=== PATIENT | male | born 1980 | race American Indian/Alaskan Native ===

== ENCOUNTER 2017-01-21 00:59 | Emergency (ER) | payer SELFPAY ==
[2017-01-21 01:55] LABS: Basophils % (Auto) 0.6 % (0.0-1.8); Eosinophils % (Auto) 2.7 % (0.0-4.3); Hematocrit 40.4 % (35.5-45.6); Hemoglobin 13.8 gm/dl (11.8-15.2); Mean Corpuscular HGB Conc 34 % (32-34); Mean Corpuscular Hemoglobin 29 pg (28-32); Mean Corpuscular Volume 86 fl (84-94); Platelet Count 301 K/mm3 (140-440); Red Cell Distribution Width 13.7 % (13.2-15.2); White Blood Count 10.5 K/mm3 (4.5-11.0)
[2017-01-21 02:00] LABS: Anion Gap 19 mmol/L; BUN/Creatinine Ratio 15.71; Blood Urea Nitrogen 11 mg/dL (9-20); Calcium 8.9 mg/dL (8.4-10.2); Carbon Dioxide 21 mmol/L (22-30); Chloride 104.1 mmol/L (98-107); Glucose 116 mg/dL (75-100); Sodium 140 mmol/L (137-145)
[2017-01-21 04:34] LABS: Bilirubin,Urine NEG (Negative); Blood,Urine NEG (Negative); Ketones,Urine NEG (Negative); Leukocyte Esterase,Urine NEG (Negative); Nitrite,Urine NEG (Negative); Protein,Urine <15 mg/dL mg/dL (Negative); Urobilinogen,Urine < 2.0 mg/dL (<2.0)
[2017-01-21] MEDS ORDERED: LIDOCAINE VISCOUS 2% PO ONE (08:12)
[2017-01-21] MEDS ORDERED: ALUM-MAG HYDROX-SIMETH 200-200-20MG/5ML PO ONE (08:12)
--- NOTE | 2017-01-21 08:39 | XRay Report ---
CHEST 2 VIEWS INDICATION: Shortness of breath, chest pain for 2 months. COMPARISON: None similar at this institution. FINDINGS: PA and lateral chest radiographs demonstrate normal cardiomediastinal silhouette. Clear lungs. Slight lower thoracic degenerative spurring. CONCLUSION: No acute disease in the chest. Thank you for the opportunity to participate in this patient's care.
--- NOTE | 2017-01-21 08:46 | Emergency Department Report ---
ED Chest Pain HPI - General Chief Complaint: Chest Pain Stated Complaint: SHORT OF BREATH Time Seen by Provider: 01/21/17 07:55 Source: patient Mode of arrival: Ambulatory Limitations: No Limitations - History of Present Illness Initial Comments: This is a 36-year-old -[place] male presents to the emergency department with a complaint of a 2 month history of intermittent midsternal chest discomfort. It mostly appears to occur when the patient is laying down. He denies any significant shortness of breath but does say that it is painful respirations sometimes as if he has "breathing hot fire." He had a previous episode of this in August and went to [facility] for a evaluation and was discharged home. He did not take anything for her symptoms prior presentation. He is a tobacco smoker. His primary care doctor is Dr. Smiley Albright [place]. Alb[place] is [place] [address] [place] used to live. No recent travel or sick contacts at home. He denies any past medical history himself. He is a tobacco smoker. His mother had a rather early cardiac history with a first GA in her mid to late 40s. - Related Data Previous Rx's Medication Instructions Recorded Last Taken Type Omeprazole Magnesium [PriLOSEC Otc] 20 mg PO QDAY #20 tablet. 01/21/17 Unknown Rx Allergies Allergy/AdvReac Type Severity Reaction Status Date / Time No Known Allergies Allergy Unverified 01/21/17 01:20 Heart Score - HEART Score History: Slightly suspicious EKG: Normal Age: < 45 Risk factors: 1-2 risk factors Troponin: < normal limit HEART Score: 1 - Critical Actions Critical Actions: 0-3 pts:0.9-1.7%risk of adverse cardiac event.Candidate for discharge ED Review of Systems ROS: Stated complaint: SHORT OF BREATH Other details as noted in HPI Comment: All other systems reviewed and negative Constitutional: denies: chills, fever Eyes: denies: eye pain, eye discharge, vision change ENT: denies: ear pain, throat pain Respiratory: denies: cough, wheezing Cardiovascular: chest pain. denies: edema Gastrointestinal: denies: nausea, vomiting Genitourinary: denies: urgency, dysuria Musculoskeletal: denies: back pain, joint swelling, arthralgia Skin: denies: rash, lesions Neurological: denies: headache, weakness, paresthesias ED Past Medical Hx - Past Medical History Previous Medical History?: No - Surgical History Past Surgical History?: No - Social History Smoking Status: Current Every Day Smoker Substance Use Type: Alcohol - Medications Home Medications: Home Medications Medication Instructions Recorded Confirmed Last Taken Type Omeprazole Magnesium [PriLOSEC Otc] 20 mg PO QDAY #20 tablet. 01/21/17 Unknown Rx ED Physical Exam - General Limitations: No Limitations - Other Other exam information: GENERAL: The patient is well-developed well-nourished. HENT: Normocephalic. Atraumatic. Patient has moist mucous membranes. EYES: Extraocular motions are intact. Pupils equal reactive to light bilaterally. NECK: Supple. Trachea is midline. CHEST/LUNGS: Clear to auscultation. There is no respiratory distress noted. HEART/CARDIOVASCULAR: Regular. There is no tachycardia. There is no gallop rub or murmur. ABDOMEN: Abdomen is soft, nontender. Patient has normal bowel sounds. There is no abdominal distention. SKIN: Skin is warm and dry. NEURO: The patient is awake, alert, and oriented. The patient is cooperative. The patient has no focal neurologic deficits. The patient has normal speech. MUSCULOSKELETAL: There is no tenderness or deformity. There is no limitation range of motion. There is no evidence of acute injury. ED Course Vital Signs 01/21/17 01/21/17 01:20 09:06 Temperature 98.1 F 98.3 F Pulse Rate 73 70 Respiratory 20 16 Rate Blood Pressure 130/85 Blood Pressure 139/66 [Left] O2 Sat by Pulse 98 99 Oximetry CSAA score - Casa Score Age > 65: (0) No Aspirin use within the Past 7 Days: (0) No 3 or more CAD Risk Factors: (0) No 2 or more Angina events in past 24 hrs: (0) No Known CAD with more than 50% Stenosis: (0) No Elevated Cardiac Markers: (0) No ST Deviation Greater than 0.5mm: (0) No CASA Score: 0 ED Medical Decision Making - Lab Data Result diagrams: 01/21/17 01:29 01/21/17 01:29 - EKG Data EKG shows normal: sinus rhythm (with sinus arrhythmia), axis, intervals, QRS complexes, ST-T waves Rate: normal - EKG Data When compared to previous EKG there are: previous EKG unavailable Interpretation: normal EKG - Radiology Data Radiology results: image reviewed interpreted by me: Chest x-ray does not show any acute process. There are no pleural effusions, obvious pneumonia and there is no pneumothorax. - Medical Decision Making 36-year-old male presents the emergency department with acute on chronic or intermittent sternal chest discomfort. It is a burning sensation and while the patient does not have any shortness of breath he sometimes feels like he is "breathing fire." EKG does not show any signs of a slight elevation GA or dysrhythmia. Labs showed negative troponins 2. Vital signs stable throughout his ED course. He was given a GI cocktail and upon reevaluation his symptoms have almost completely resolved. He is low on the heart score criteria and low CASA score. He is low on the well's score criteria and has ruled out of the pulmonary embolism rule out criteria. Patient appears safe for discharge home and will be placed on Prilosec and we discussed dietary changes to make for GERD and/or gastritis. However the patient does have a risk factor of tobacco use and possibly family history of coronary artery disease and with his complaint of chest discomfort going on for a few months, he will be given a referral for cardiology. He has also been encouraged to return to the emergency Department with any worsening of his symptoms or any acute distress. - Differential Diagnosis GERD, pleurisy, GA, pneumonia Critical Care Time: No Critical care attestation.: If time is entered above; I have spent that time in minutes in the direct care of this critically ill patient, excluding procedure time. ED Disposition Clinical Impression: GERD (gastroesophageal reflux disease) Qualifiers: Esophagitis presence: esophagitis presence not specified Qualified Code(s): K21.9 - Gastro-esophageal reflux disease without esophagitis Chest pain Qualifiers: Chest pain type: unspecified Qualified Code(s): R07.9 - Chest pain, unspecified Disposition: DC-01 TO HOME OR SELFCARE Is pt being admited?: No Condition: Stable Instructions: Chest Pain (ED) Additional Instructions: Please follow up with a primary care physician in the next few days. Try to quit smoking. Try to stay away from alcohol, spicy foods, tomato based foods, acidic products, all that might exacerbate acid reflux. I have started you on Prilosec for acid reflux. I have given you a referral for a local plasticator , Dr. Su, in case he would like to follow up regarding your intermittent chest pains for a possible outpatient stress test. Return to the emergency Department with any worsening of your symptoms or any acute distress. Prescriptions: Omeprazole Magnesium [PriLOSEC Otc] 20 mg PO QDAY #20 tablet.dr Referrals: SMILEY PAINTING MD [Other] - 3-5 Days JI MIN MD [Staff Physician] - 3-5 Days KENNAGARFIELDTREE Sol MD [Staff Physician] - 3-5 Days Forms: Work/School Release Form(ED) Time of Disposition: 09:07
[2017-01-21 09:06] VITALS: BP 139/66
== END 2017-01-21 09:15 | disposition home or self-care (01) ==
LOC: ED 00:59
DX: K21.9 Gastro-esophageal reflux disease without esophagitis (principal); R07.9 Chest pain, unspecified; F17.210 Nicotine dependence, cigarettes, uncomplicated
CPT/HCPCS: 36415; 71020; 80048; 81001; 84484; 85025; 93005; 93010